=== PATIENT | male | born 1970 | race Caucasian/White ===

== ENCOUNTER 2017-11-13 15:40 | Emergency (ER) | payer SELFPAY ==
[~2017-11-13] VITALS: Ht 175.3 cm; Wt 86.2 kg
[2017-11-13 15:53] VITALS: BP 125/82
== END 2017-11-13 18:24 | disposition home or self-care (01) ==
LOC: ER 15:52
DX: E11.9 Type 2 diabetes mellitus without complications (principal); F17.210 Nicotine dependence, cigarettes, uncomplicated; Z88.0 Allergy status to penicillin
CPT/HCPCS: 82962